=== PATIENT | female | born 1975 | race Caucasian/White ===

== ENCOUNTER 2016-03-16 22:31 | Emergency (ER) | payer OTHER ==
[~2016-03-16] VITALS: Ht 175.3 cm; Wt 87.6 kg
[~2016-03-16 22:31] MED LIST: ATARAX,VISTARIL25 MG PO; BIRTHCONTROL; CLEOCIN300 MG PO; CLINDAMYCIN HC300 MG PO; CYMBALTA60 MG PO; DILAUDID2 MG PO; DOXYCYCLINE HY100 MG PO; ELAVIL50 MG PO; FIORICET 50-301 EACH PO; INDOCIN25 MG PO; JUNEL1 EACH PO; MOBIC7.5 MG PO; MS CONTIN,ORAMO15 M1 PO; NAPROSYN500 MG PO; NEURONTIN600 MG PO; NORCO 5/3251 TABLET PO; PERCOCET 10/1 TABLET PO; PERCOCET 5/31 TABLET PO; PREDNISONE20 MG PO; REGLAN10 MG PO; ULTRAM50 MG PO; VALIUM5 MG PO; ZANAFLEX4 M1 PO; ZOLOFT100 MG PO
[2016-03-16 23:18] LABS: HEMATOCRIT 39.8 % (36.0-46.0); MCH 32.4 PG (29.0-34.0); MCHC 32.4 G/DL (30.0-36.0); MEAN PLAT.VOLUME 10.5 uM^3 (9.5-12.4); PLATELET COUNT 270 K/uL (156-360); RBC DIS.WIDTH-CV 12.9 % (11.8-14.6); RBC DIS.WIDTH-SD 46.3 % (39-53); RED BLOOD COUNT 3.98 M/uL (3.80-5.20)
[2016-03-16 23:35] LABS: CHLORIDE 104 mEq/L (99-109); POTASSIUM 4.5 mEq/L (3.7-5.4); SODIUM 137 mEq/L (136-147)
[2016-03-16 23:37] LABS: D-DIMER ELISA 0.29 mg/L FEU (< 0.57)
[2016-03-16 23:38] LABS: GLUCOSE 82 mg/dL (70-99)
[2016-03-16 23:39] LABS: ANION GAP 10 MEQ/L (2-14)
[2016-03-16 23:40] LABS: TOTAL BILIRUBIN 0.2 mg/dL (0.0-1.0)
[2016-03-16 23:41] LABS: ALKALINE PHOSPHATASE 123 IU/L (3-129); GFR ESTIMATE (CALCULATED) > 59 mL/min/
[2016-03-16 23:42] LABS: UREA NITROGEN (BUN) 15 mg/dL (9-23)
[2016-03-16 23:42] LABS: TROP-I INTERPRETATION NEGATIVE; TROPONIN-I < 0.01 ng/mL (0.0-0.30)
[2016-03-16 23:45] LABS: LIPASE 51 U/L (1.0-51.0)
[2016-03-17 01:26] LABS: INFLUENZA A VIRAL ANTIGEN NEGATIVE; INFLUENZA B VIRAL ANTIGEN NEGATIVE
[2016-03-17 02:25] LABS: TROP-I INTERPRETATION NEGATIVE; TROPONIN-I < 0.01 ng/mL (0.0-0.30)
[2016-03-17 03:03] VITALS: BP 112/60
== END 2016-03-17 03:04 | disposition home or self-care (01) ==
LOC: EME → EDBD 22:31 → EME 03-17 03:04
PROVIDERS: Physician Assistant Medical
DX: R07.9 Chest pain, unspecified (principal); M79.1 Myalgia; M54.2 Cervicalgia; M25.512 Pain in left shoulder; R00.0 Tachycardia, unspecified; G89.29 Other chronic pain; Z79.3 Long term (current) use of hormonal contraceptives; F17.200 Nicotine dependence, unspecified, uncomplicated
CPT/HCPCS: 71020; 80048; 80053; 83690; 84484; 85027; 85379; 87502; 93005; 99281; 99285; J1100; J1885; J2270; J7030